=== PATIENT | male | born 1960 | race Caucasian/White ===

== ENCOUNTER 2019-06-30 12:38 | Inpatient (IN) | payer MEDICAID ==
[2019-06-30] MEDS ORDERED: HYDROmorphone 0.5 MG/0.5 ML Syringe IVPUSH ONE (13:52)
[2019-06-30] MEDS ORDERED: Ondansetron 4 MG/2 ML SDV IVPUSH ONE (13:52)
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
[2019-06-30] MEDS: Sodium Chloride 0.9% 1,000 ML IV SCH ×2 (14:17→19:56)
[2019-06-30] MEDS ORDERED: Sodium Chloride 0.9% 1,000 ML IV SCH (15:15)
--- NOTE | 2019-06-30 15:27 | CRLCR ---
INDICATION: Shortness of breath TECHNIQUE: Portable semi-upright frontal view of the chest. COMPARISON: None FINDINGS/IMPRESSION: 1. There is suboptimal inspiratory volume. Focal retrocardiac opacity likely represents atelectasis. The lungs are otherwise clear. 2. There is no pleural effusion or pneumothorax. The cardiomediastinal silhouette is normal. 3. The osseous structures are unremarkable. Dictated by Savannah Holder MD @ Jun 30 2019 3:25PM Signed by Dr. Savannah Holder @ Jun 30 2019 3:25PM
--- NOTE | 2019-06-30 18:17 | CRLUS ---
CLINICAL HISTORY: Abdominal pain COMPARISON: MRI abdomen 05/31/2019 TECHNIQUE: Real time guthrie scale imaging and color Doppler analysis was performed of the abdomen. FINDINGS: Liver: Coarse parenchymal echotexture, compatible with cirrhosis. No suspicious lesions. No intrahepatic biliary dilatation. Patent main portal vein with suggestion of hepatofugal flow. Mild ascites. Common bile duct: Normal caliber measuring up to 6 mm. Gallbladder: Sludge and multiple small shadowing gallstones. Mild gallbladder wall thickening, nonspecific in the presence of ascites. Pancreas: Visualized portions of the head and body appear unremarkable. Distal pancreas obscured. Spleen: Nonenlarged, measuring up to 13.1 cm. Aorta: Obscured Intrahepatic IVC: Obscured Right kidney: Measures 10 cm in length. Normal cortical thickness and parenchymal echotexture. No hydronephrosis. Small renal cortical cyst Left kidney: Measures 9.8 cm in length. Normal cortical thickness and parenchymal echotexture. No hydronephrosis. Impression : 1. Hepatic cirrhosis with mild ascites. Hepatofugal flow in the main portal vein. 2. Cholelithiasis. Mild gallbladder wall thickening, nonspecific in the setting of ascites. Dictated by Savannah Holder MD @ Jun 30 2019 6:15PM Signed by Dr. Savannah Holder @ Jun 30 2019 6:15PM
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
--- NOTE | 2019-06-30 18:30 | PCM.OPNOTE ---
- General Post-Op/Procedure Note Date of Surgery/Procedure: 06/30/19 Operative Procedure(s): Pericentesis of abdominal fluid Findings: 3900 cc of fluid removed from abd. cavity+ Pre Op Diagnosis: cirrhosis of the liver with ascites Primary Surgeon: Can Bennett Sr Condition: Good Free Text/Narrative:: He has significant distention of his abdomen with pain and discomfort. Using the standard sterile technique I cleaned the area that was marked by ultrasound to have ascitic fluid present removed that was in the lateral right side of the abdomen. I cleaned the area with ChloraPrep and then injected 1% lidocaine 4 cc was used. I then used a catheter that was placed through the skin after the skin with a #11 blade. Using suction bottles I are removed 3900 cc of ascitic fluid. He tolerated this well. He requests to be a no code and will be admitted in the hospital as he has significant liver dysfunction. He also has bladder distention and a Dela Cruz catheter will be placed. I will also give albumin 25 g. IV.
[2019-06-30] MEDS ORDERED: Lidocaine 2% Jelly 10 ML Urojet MUCMEM ONE (21:29)
[2019-06-30] MEDS: Temazepam 15 MG Cap PO PRN (22:47)
[2019-06-30] MEDS: Tamsulosin 0.4 MG Cap.ER PO SCH (22:47)
[2019-07-01] MEDS: Sodium Chloride 0.9% 1,000 ML IV SCH ×3 (03:52→19:36)
[2019-07-01] MEDS ORDERED: Tamsulosin 0.4 MG Cap.ER PO SCH (09:00)
[2019-07-01] MEDS: Tamsulosin 0.4 MG Cap.ER PO SCH (09:37)
[2019-07-01] MEDS ORDERED: Sodium Chloride 0.9% 300 ML IV ONE (12:00)
--- NOTE | 2019-07-01 13:42 | PCM.PN ---
- General Info Date of Service: 07/01/19 Admission Dx/Problem (Free Text): his abdomen is starting to swell again we'll try to get a Lugoff shunt in tomorrow and have called Dr. Ritter. Functional Status: Reports: Pain Controlled - Review of Systems General: Reports: Weakness, Fatigue HEENT: Reports: No Symptoms Pulmonary: Reports: Shortness of Breath, Cough Cardiovascular: Reports: Dyspnea on Exertion Genitourinary: Reports: No Symptoms, Other (Dela Cruz catheter was removed as he is unable to tolerate the pain and he has had straight catheters as his bladder is distended with retention.) Musculoskeletal: Reports: No Symptoms, Leg Pain, Foot Pain Skin: Reports: Bruising Neurological: Reports: No Symptoms Psychiatric: Reports: No Symptoms - Patient Data Vitals - Most Recent: Last Vital Signs Temp 97.7 F 07/01/19 10:39 Pulse 93 07/01/19 10:39 Resp 18 07/01/19 10:39 BP 90/60 07/01/19 13:10 Pulse Ox 94 L 07/01/19 10:39 Weight - Most Recent: 160 lb I&O - Last 24 Hours: Intake & Output 06/30/19 07/01/19 07/01/19 22:59 06:59 14:59 Intake Total 1205 460 Output Total 4150 700 Balance -4150 1205 -240 Lab Results Last 24 Hours: Laboratory Results - last 24 hr 06/30/19 06/30/19 06/30/19 Range/Units 12:30 12:30 12:30 PT 17.1 H (9.5-12.0) sec INR 1.63 H (0.80-1.20) APTT 30.6 (27.0-36.0) sec Sodium (140-148) mmol/L Potassium (3.6-5.2) mmol/L Chloride (100-108) mmol/L Carbon Dioxide (21-32) mmol/L Anion Gap (5.0-14.0) mmol/L BUN (7-18) mg/dL Creatinine (0.8-1.3) mg/dL Est Cr Clr Drug Dosing mL/min Estimated GFR (MDRD) (>60) Glucose (74-106) mg/dL Calcium (8.5-10.1) mg/dL Total Bilirubin (0.2-1.0) mg/dL AST (15-37) U/L ALT (12-78) U/L Alkaline Phosphatase (46-116) U/L C-Reactive Protein (0.0-0.3) mg/dL Total Protein (6.4-8.2) g/dL Albumin (3.4-5.0) g/dL Globulin (2.3-3.5) g/dL Albumin/Globulin Ratio (1.2-2.2) Lipase 122 (73-393) U/L 06/30/19 06/30/19 Range/Units 13:12 13:12 PT (9.5-12.0) sec INR (0.80-1.20) APTT (27.0-36.0) sec Sodium 128 L (140-148) mmol/L Potassium 3.7 (3.6-5.2) mmol/L Chloride 92 L (100-108) mmol/L Carbon Dioxide 22 (21-32) mmol/L Anion Gap 17.7 H (5.0-14.0) mmol/L BUN 13 (7-18) mg/dL Creatinine 1.4 H (0.8-1.3) mg/dL Est Cr Clr Drug Dosing 58.32 mL/min Estimated GFR (MDRD) 52 L (>60) Glucose 127 H (74-106) mg/dL Calcium 8.5 (8.5-10.1) mg/dL Total Bilirubin 10.0 H (0.2-1.0) mg/dL AST 188 H (15-37) U/L ALT 167 H (12-78) U/L Alkaline Phosphatase 105 (46-116) U/L C-Reactive Protein 0.61 H (0.0-0.3) mg/dL Total Protein 7.2 (6.4-8.2) g/dL Albumin 2.2 L (3.4-5.0) g/dL Globulin 5.0 H (2.3-3.5) g/dL Albumin/Globulin Ratio 0.4 L (1.2-2.2) Lipase (73-393) U/L Med Orders - Current: Current Medications Sodium Chloride (Normal Saline) 1,000 mls @ 125 mls/hr IV ASDIRECTED JACKI Last Admin: 07/01/19 12:04 Dose: 125 mls/hr Albumin Human (Albumin 25%) 25 gm in 100 mls @ 25 mls/hr IV ONETIME ONE Stop: 07/01/19 16:59 Last Admin: 07/01/19 13:11 Dose: 25 mls/hr Ondansetron HCl (Zofran Odt) 4 mg PO Q6H PRN PRN Reason: Nausea able to take PO Tamsulosin HCl (Flomax) 0.4 mg PO DAILY REPLACED BY [facility] Last Admin: 07/01/19 09:37 Dose: 0.4 mg Temazepam (Restoril) 15 mg PO BEDTIME PRN PRN Reason: Sleep Last Admin: 06/30/19 22:47 Dose: 15 mg Discontinued Medications Hydromorphone HCl (Dilaudid) 0.5 mg IVPUSH ONETIME ONE Stop: 06/30/19 13:53 Last Admin: 06/30/19 14:17 Dose: 0.5 mg Sodium Chloride (Normal Saline) 1,000 mls @ 999 mls/hr IV ASDIRECTED REPLACED BY [facility] Last Admin: 06/30/19 15:19 Dose: 999 mls/hr Albumin Human (Albumin 25%) 25 gm in 100 mls @ 25 mls/hr IV ONETIME ONE Stop: 07/01/19 00:23 Last Admin: 06/30/19 22:47 Dose: 25 mls/hr Sodium Chloride (Normal Saline) 300 mls @ 300 mls/hr IV BOLUS ONE Stop: 07/01/19 12:59 Last Admin: 07/01/19 12:05 Dose: 300 mls/hr Lidocaine HCl (Xylocaine 2% Jelly) 10 ml MUCMEM ONETIME ONE Stop: 06/30/19 21:30 Last Admin: 06/30/19 21:48 Dose: 10 ml Ondansetron HCl (Zofran) 4 mg IVPUSH ONETIME ONE Stop: 06/30/19 13:53 Last Admin: 06/30/19 14:15 Dose: 4 mg - Exam General: Moderate Distress HEENT: Scleral Icterus Neck: Supple Lungs: Clear to Auscultation, Normal Respiratory Effort Cardiovascular: Regular Rate GI/Abdominal Exam: Soft Back Exam: Vertebral Tenderness Extremities: No Pedal Edema, Other (there are still open wounds that are present in the feet and legs but they are dry and appear to be healing.) Peripheral Pulses: 1+: Radial (L), Radial (R) Skin: Warm, Dry Wound/Incisions: Erythema Improving Neurological: No New Focal Deficit Psy/Mental Status: Alert, Normal Affect, Normal Mood Sepsis Event Note - Evaluation Sepsis Screening Result: Possible Sepsis Risk - Focused Exam Vital Signs: Vital Signs Temp Pulse Resp BP Pulse Ox 07/01/19 13:10 90/60 07/01/19 10:39 97.7 F 93 18 85/56 L 94 L 07/01/19 07:00 97.5 F 93 18 85/47 L 92 L 07/01/19 03:00 97.9 F 96 16 94/43 L 93 L Date Exam was Performed: 07/02/19 Time Exam was Performed: 19:31 - Problem List Review Problem List Initiated/Reviewed/Updated: Yes - My Orders Last 24 Hours: My Active Orders 06/30/19 16:40 US Guidance Paracentesis NC [US] Stat 06/30/19 16:45 Insert Dela Cruz Catheter [Insert Urinary Catheter] [OM.PC] Q24H 06/30/19 17:58 Bedrest Bathroom Privileges [RC] ASDIRECTED Height and Weight [RC] DAILY May Shower [RC] ASDIRECTED Up to Chair [RC] QID Ondansetron [Zofran ODT] 4 mg PO Q6H PRN Temazepam [Restoril] 15 mg PO BEDTIME PRN Resuscitation Status Routine 06/30/19 17:59 Patient Status [ADT] Routine Oxygen Therapy [RC] PRN VTE/DVT Education [RC] Per Unit Routine Vital Signs [RC] Q4H 06/30/19 22:34 Tamsulosin [Flomax] 0.4 mg PO DAILY 07/01/19 09:45 Urinary Catheter Insertion [Insert Urinary Catheter] [OM.PC] Q24H 07/01/19 13:00 Albumin Human [Albumin 25%] 25 gm in 100 ml IV ONETIME 07/01/19 18:00 INR,PT,PROTHROMBIN TIME [COAG] Routine 07/01/19 Breakfast Regular Diet [DIET] 07/02/19 05:11 CBC WITH AUTO DIFF [HEME] AM COMPREHENSIVE METABOLIC PN,CMP [CHEM] AM INR,PT,PROTHROMBIN TIME [COAG] Routine - Plan Plan:: Assessment/Plan: #1. 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 #2. Peritoneal fluid 2nd to #1. I talked with Dr. Ritter who will consider a Lugoff shunt in the morning if he is stable. The INR is still elevated I will give vitamin K and we'll check a level of 6 tonight to make sure the INR is not worse. Dr. Ritter did give him a unit of fresh frozen plasma this morning. #3. Bladder dysfunction with retention. He has been straight cathetering as he cannot tolerate a Dela Cruz catheter #4. Cholelithiasis with mild gallbladder wall thickening. #5. History esophageal varices #6. History of Hypertension and Hypotension #7. History of Intervertebral disc degeneration.
[2019-07-01] MEDS: Ondansetron 4 MG Tab.DIS PO PRN (23:01)
[2019-07-02] MEDS: Sodium Chloride 0.9% 1,000 ML IV SCH (04:53)
--- NOTE | 2019-07-02 05:14 | CRLCR ---
INDICATION: Coughing up blood. COMPARISON: 06/30/2019 FINDINGS: A portable erect single view of the chest was obtained at 0457 hours in a lordotic projection. Inspiratory effort remains quite low. Again seen is mild patchy infiltrate in the retrocardiac left lower lobe and mild patchy density along the right hemidiaphragm, findings consistent with atelectasis. The rest of the chest is clear. The heart remains normal in size. The mediastinum is normal in appearance. The osseous structures are normal in appearance for the patient`s age. IMPRESSION: No change in mild patchy retrocardiac and right basilar infiltrates, consistent with atelectasis. Dictated by Guero Masterson MD @ Jul 02 2019 5:11AM Signed by Dr. Guero Masterson @ Jul 02 2019 5:13AM
[2019-07-02] MEDS ORDERED: Iopamidol 612 MG/ML 100 ML Bottle IV ONE (05:46)
--- NOTE | 2019-07-02 06:54 | CRLCT ---
INDICATION: Coughing up blood. COMPARISON: Chest radiograph from earlier today. CT of the abdomen and pelvis from 05/26/2019. TECHNIQUE: : CT examination of the chest was performed with the uneventful intravenous administration of 100 cc of Isovue-300 while 3 mm thick axial sections were obtained from above the apices of the lungs to the lung bases. Please note that all CT scans at this facility use dose modulation, iterative reconstruction, and/or weight-based dosing when appropriate to reduce radiation dose to as low as reasonably achievable. FINDINGS: : There is a new mild left pleural effusion. There is new prominent atelectasis of the posterior and lateral basilar segments of the left lower lobe, along with new moderate atelectasis of the inferior posterior portion of the lingula. There is a new tiny right pleural effusion with new mild atelectasis of the posterior-medial right lung base. There continues to be moderate linear atelectasis of the right lung base associated with mild eventration of the right hemidiaphragm. There is satisfactory enhancement of the pulmonary arteries with no sign of pulmonary embolism. There is no sign of mediastinal or hilar mass or adenopathy. The heart is normal in appearance for the patient`s age, as are the aorta and other ascending great vessels. There is no sign of supraclavicular or axillary mass or adenopathy. There is increased ascites, previously mild, now moderate. Again seen is prominent nodularity of the liver consistent with cirrhosis. The visualized spleen, pancreas, kidneys, and adrenals are normal in appearance. There is moderate scoliosis of the mid thoracic spine convex towards the right. IMPRESSION: New mild left pleural effusion with new prominent consolidation of the posterior and lateral segments of the left lower lobe, probably atelectasis. New moderate atelectasis of the inferior posterior lingula. New tiny right pleural effusion. Worsening ascites, now moderate. Again seen is moderate nodularity of the liver consistent with cirrhosis. Please note that all CT scans at this facility use dose modulation, iterative reconstruction, and/or weight-based dosing when appropriate to reduce radiation dose to as low as reasonably achievable. Dictated by Guero Masterson MD @ Jul 02 2019 6:45AM Signed by Dr. Guero Masterson @ Jul 02 2019 6:53AM
[2019-07-02] MEDS ORDERED: fentaNYL 100 MCG/2 ML SDV ONE (07:57)
[2019-07-02] MEDS ORDERED: Midazolam 1 MG/ML 2 ML SDV ONE (07:57)
[2019-07-02] MEDS ORDERED: Propofol 200 MG/20 ML SDV ONE (07:57)
[2019-07-02] MEDS ORDERED: ceFAZolin 2 GM in Premix Bag 1 BAG IV ONE (08:30)
[2019-07-02] MEDS ORDERED: Pantoprazole 40 MG Vial IVPUSH ONE (09:01)
[2019-07-02] MEDS: Dextrose 5%-Lactated Ringers 1,000 ML IV SCH ×2 (10:18→20:32)
[2019-07-02] MEDS: Tamsulosin 0.4 MG Cap.ER PO SCH (10:21)
[2019-07-02] MEDS ORDERED: Lidocaine 1% 2 ML ONE (16:31)
--- NOTE | 2019-07-02 19:51 | PCM.PN ---
- General Info Date of Service: 07/02/19 Subjective Update: this morning he apparently brought up significant monitor blood and also had blood in his stools and has a poor appetite today. He did have an EGD done by Dr. Ritter who found esophageal varices and no other acute bleeding was found. Functional Status: Reports: Pain Controlled - Review of Systems General: Reports: Weakness, Malaise HEENT: Reports: No Symptoms Pulmonary: Reports: No Symptoms Cardiovascular: Reports: No Symptoms Gastrointestinal: Reports: Abdominal Pain, Decreased Appetite, Melena, Nausea Genitourinary: Reports: No Symptoms Musculoskeletal: Reports: No Symptoms Skin: Reports: No Symptoms Neurological: Reports: Difficulty Walking, Weakness, Gait Disturbance Psychiatric: Reports: No Symptoms - Patient Data Vitals - Most Recent: Last Vital Signs Temp 98.8 F 07/02/19 15:33 Pulse 104 H 07/02/19 15:33 Resp 16 07/02/19 15:33 BP 86/60 L 07/02/19 15:33 Pulse Ox 93 L 07/02/19 15:33 Weight - Most Recent: 160 lb I&O - Last 24 Hours: Intake & Output 07/02/19 07/02/19 07/02/19 06:59 14:59 22:59 Intake Total 9147 166 6503 Output Total 360 350 Balance 882 621 1002 Lab Results Last 24 Hours: Laboratory Results - last 24 hr 07/01/19 07/02/19 07/02/19 Range/Units 17:11 05:40 05:40 WBC 6.6 (4.5-11.0) K/uL RBC 2.77 L (4.30-5.90) M/uL Hgb 8.2 L (12.0-15.0) g/dL Hct 24.5 L (40.0-54.0) % MCV 88 (80-98) fL MCH 30 (27-31) pg MCHC 34 (32-36) % Plt Count 200 (150-400) K/uL Neut % (Auto) 83 H (36-66) % Lymph % (Auto) 10 L (24-44) % [place] % (Auto) 6 (2-6) % Eos % (Auto) 1 L (2-4) % Baso % (Auto) 0 (0-1) % Percent Retic (0.5-1.5) % PT 17.3 H (9.5-12.0) sec INR 1.65 H (0.80-1.20) Sodium (140-148) mmol/L Potassium (3.6-5.2) mmol/L Chloride (100-108) mmol/L Carbon Dioxide (21-32) mmol/L Anion Gap (5.0-14.0) mmol/L BUN (7-18) mg/dL Creatinine (0.8-1.3) mg/dL Est Cr Clr Drug Dosing mL/min Estimated GFR (MDRD) (>60) Glucose (74-106) mg/dL Calcium (8.5-10.1) mg/dL Total Bilirubin (0.2-1.0) mg/dL AST (15-37) U/L ALT (12-78) U/L Alkaline Phosphatase (46-116) U/L Total Protein (6.4-8.2) g/dL Albumin (3.4-5.0) g/dL Globulin (2.3-3.5) g/dL Albumin/Globulin Ratio (1.2-2.2) Blood Type O POSITIVE Gel Antibody Screen Negative Crossmatch See Detail 07/02/19 07/02/19 Range/Units 05:40 05:40 WBC (4.5-11.0) K/uL RBC (4.30-5.90) M/uL Hgb (12.0-15.0) g/dL Hct (40.0-54.0) % MCV (80-98) fL MCH (27-31) pg MCHC (32-36) % Plt Count (150-400) K/uL Neut % (Auto) (36-66) % Lymph % (Auto) (24-44) % [place] % (Auto) (2-6) % Eos % (Auto) (2-4) % Baso % (Auto) (0-1) % Percent Retic 1.3 (0.5-1.5) % PT (9.5-12.0) sec INR (0.80-1.20) Sodium 127 L (140-148) mmol/L Potassium 4.0 (3.6-5.2) mmol/L Chloride 99 L (100-108) mmol/L Carbon Dioxide 20 L (21-32) mmol/L Anion Gap 12.0 (5.0-14.0) mmol/L BUN 13 (7-18) mg/dL Creatinine 1.1 (0.8-1.3) mg/dL Est Cr Clr Drug Dosing 77.01 mL/min Estimated GFR (MDRD) > 60 (>60) Glucose 99 (74-106) mg/dL Calcium 7.6 L (8.5-10.1) mg/dL Total Bilirubin 7.6 H (0.2-1.0) mg/dL AST 135 H (15-37) U/L ALT 122 H (12-78) U/L Alkaline Phosphatase 95 (46-116) U/L Total Protein 6.2 L (6.4-8.2) g/dL Albumin 2.5 L (3.4-5.0) g/dL Globulin 3.7 H (2.3-3.5) g/dL Albumin/Globulin Ratio 0.7 L (1.2-2.2) Blood Type Gel Antibody Screen Crossmatch Med Orders - Current: Current Medications Dextrose/Lactated Ringer's (Dextrose 5%-Lactated Ringers) 1,000 mls @ 100 mls/ hr IV [facility]RECTED [facility] Last Admin: 07/02/19 10:18 Dose: 100 mls/hr Ondansetron HCl (Zofran Odt) 4 mg PO Q6H PRN PRN Reason: Nausea able to take PO Last Admin: 07/01/19 23:01 Dose: 4 mg Pantoprazole Sodium (Protonix Iv) 40 mg IV Q12H JACK[facility] Tamsulosin HCl (Flomax) 0.4 mg PO DAILY [facility] Last Admin: 07/02/19 10:21 Dose: 0.4 mg Temazepam (Restoril) 15 mg PO BEDTIME PRN PRN Reason: Sleep Last Admin: 06/30/19 22:47 Dose: 15 mg Discontinued Medications Fentanyl (Sublimaze) Confirm Administered Dose 100 mcg .ROUTE .STK-MED ONE Stop: 07/02/19 07:58 Hydromorphone HCl (Dilaudid) 0.5 mg IVPUSH ONETIME ONE Stop: 06/30/19 13:53 Last Admin: 06/30/19 14:17 Dose: 0.5 mg Sodium Chloride (Normal Saline) 1,000 mls @ 150 mls/hr IV [facility]RECT[facility] Last Admin: 07/02/19 04:53 Dose: 150 mls/hr Sodium Chloride (Normal Saline) 1,000 mls @ 999 mls/hr IV [facility] Last Admin: 06/30/19 15:19 Dose: 999 mls/hr Albumin Human (Albumin 25%) 25 gm in 100 mls @ 25 mls/hr IV ONETIME ONE Stop: 07/01/19 00:23 Last Admin: 06/30/19 22:47 Dose: 25 mls/hr Sodium Chloride (Normal Saline) 300 mls @ 300 mls/hr IV BOLUS ONE Stop: 07/01/19 12:59 Last Admin: 07/01/19 12:05 Dose: 300 mls/hr Albumin Human (Albumin 25%) 25 gm in 100 mls @ 25 mls/hr IV ONETIME ONE Stop: 07/01/19 16:59 Last Admin: 07/01/19 13:11 Dose: 25 mls/hr Cefazolin Sodium/Dextrose 2 gm (/ Premix) 50 mls @ 100 mls/hr IV ONETIME ONE Stop: 07/02/19 08:59 Last Admin: 07/02/19 10:19 Dose: 100 mls/hr Albumin Human (Albumin 25%) 25 gm in 100 mls @ 25 mls/hr IV ONETIME ONE Stop: 07/01/19 23:59 Last Admin: 07/01/19 19:35 Dose: 25 mls/hr Sodium Chloride (Normal Saline) 79 mls @ 3 mls/sec IV [facility] Last Admin: 07/02/19 06:05 Dose: 3 mls/sec Lidocaine HCl (Xylocaine-Mpf 1%) Confirm Administered Dose 2 mls @ as directed .ROUTE .STK-MED ONE Stop: 07/02/19 16:32 Iopamidol (Isovue-300 (61%)) 100 ml IV . DIRECTED ONE Stop: 07/02/19 05:47 Last Admin: 07/02/19 06:05 Dose: 100 ml Lidocaine HCl (Xylocaine 2% Jelly) 10 ml MUCMEM ONETIME ONE Stop: 06/30/19 21:30 Last Admin: 06/30/19 21:48 Dose: 10 ml Midazolam HCl (Versed 1 Mg/Ml) Confirm Administered Dose 2 mg .ROUTE .STK-MED ONE Stop: 07/02/19 07:58 Ondansetron HCl (Zofran) 4 mg IVPUSH ONETIME ONE Stop: 06/30/19 13:53 Last Admin: 06/30/19 14:15 Dose: 4 mg Pantoprazole Sodium (Protonix Iv) 40 mg IVPUSH ONETIME ONE Stop: 07/02/19 09:02 Last Admin: 07/02/19 09:05 Dose: 40 mg Phytonadione (Aquamephyton) 2 mg SUBCUT ONETIME ONE Stop: 07/01/19 22:51 Last Admin: 07/01/19 23:01 Dose: 2 mg Propofol (Diprivan 20 Ml) Confirm Administered Dose 200 mg .ROUTE .STK-MED ONE Stop: 07/02/19 07:58 - Exam General: Oriented, Cooperative HEENT: Pupils Equal, Pupils Reactive, EOMI, Mucous Membr. Moist/[place] Neck: Supple Lungs: Clear to Auscultation, Normal Respiratory Effort Cardiovascular: Regular Rate, Regular Rhythm GI/Abdominal Exam: Distended Extremities: No Pedal Edema Peripheral Pulses: 1+: Radial (L), Radial (R) Skin: Warm, Dry Wound/Incisions: Dressing Dry and Intact Psy/Mental Status: Labile Mood Sepsis Event Note - Evaluation Sepsis Screening Result: Possible Sepsis Risk - Focused Exam Vital Signs: Vital Signs Temp Temp Pulse Resp BP Pulse Ox 07/02/19 15:33 98.8 F 104 H 16 86/60 L 93 L 07/02/19 11:45 98.1 F 100 18 109/63 93 L 07/02/19 10:39 97.7 F 100 16 100/63 94 L 07/02/19 10:15 97.9 F 99 18 109/67 94 L 07/02/19 10:00 100/70 07/02/19 09:45 98.1 F 102 H 18 109/68 92 L 07/02/19 09:30 18 102/64 07/02/19 09:15 97.9 F 100 16 97/53 L 94 L 07/02/19 09:10 101 H 16 97/56 L 94 L 07/02/19 09:05 99 16 81/47 L 95 07/02/19 09:00 98 16 82/44 L 95 07/02/19 08:55 97.7 F 100 16 77/45 L 94 L Date Exam was Performed: 07/02/19 Time Exam was Performed: 19:54 - Problem List Review Problem List Initiated/Reviewed/Updated: Yes - My Orders Last 24 Hours: My Active Orders 07/01/19 19:00 Communication Order [RC] ASDIRECTED 07/01/19 23:30 Insert Urinary Catheter [OM.PC] Q6H 07/02/19 05:30 Insert Urinary Catheter [OM.PC] Q6H 07/02/19 11:30 Insert Urinary Catheter [OM.PC] Q6H 07/02/19 17:30 Insert Urinary Catheter [OM.PC] Q6H 07/02/19 23:30 Insert Urinary Catheter [OM.PC] Q6H 07/02/19 Dinner Regular Diet [DIET] - Plan Plan:: Assessment/Plan: #1. 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 His liver functions have improved slightly today. #2. Peritoneal fluid 2nd to #1. a Nilesh shunt was not done Dr. Ritter advise transfer as he is going into hepatic encephalopathy. [facility] choice however is a DNR/DNI so they would not accept him at [facility] since he has chosen supportive care only. He will admit to tapping abdomen for more fluid for more comfort only.Vitamin K was given last night when he started to bleed. The INR is appropriate at the present time at 1.65. His overall prognosis is poor. We ill [facility] supportive care at his request. His bilirubin has improved from 10 down to 7.6 #3. Bladder dysfunction with retention. He has been straight cathetering as he cannot tolerate a Dela Cruz catheter #4. Cholelithiasis with mild gallbladder wall thickening. #5. History esophageal varices #6. History of Hypertension and Hypotension #7. History of Intervertebral disc degeneration.
[2019-07-02] MEDS: Pantoprazole 40 MG Vial IV SCH (20:34)
[2019-07-03] MEDS: Tamsulosin 0.4 MG Cap.ER PO SCH (09:13)
[2019-07-03] MEDS: Pantoprazole 40 MG Vial IV SCH ×2 (09:14→20:07)
[2019-07-03] MEDS: Potassium Acetate 20 MEQ in Sodium Chloride 0.9% 150 ML IV SCH ×2 (10:07→14:12)
--- NOTE | 2019-07-03 16:14 | PCM.PN ---
- General Info Date of Service: 07/03/19 Subjective Update: He is still eating very minimal at the present time and he is aware and has requested again to remain a no CODE STATUS. Functional Status: Reports: Pain Controlled - Review of Systems General: Reports: Weakness HEENT: Reports: No Symptoms Pulmonary: Reports: No Symptoms Cardiovascular: Reports: No Symptoms Gastrointestinal: Reports: Abdominal Pain, Nausea Genitourinary: Reports: Retention Musculoskeletal: Reports: No Symptoms Skin: Reports: No Symptoms Neurological: Reports: No Symptoms Psychiatric: Reports: No Symptoms - Patient Data Vitals - Most Recent: Last Vital Signs Temp 97.5 F 07/03/19 14:34 Pulse 96 07/03/19 14:34 Resp 16 07/03/19 14:34 BP 101/59 L 07/03/19 14:34 Pulse Ox 94 L 07/03/19 14:34 Weight - Most Recent: 180 lb 3.2 oz I&O - Last 24 Hours: Intake & Output 07/03/19 07/03/19 07/03/19 06:59 14:59 22:59 Intake Total 1236 520 Balance 1236 520 Lab Results Last 24 Hours: Laboratory Results - last 24 hr 07/03/19 07/03/19 07/03/19 Range/Units 05:50 05:50 05:50 WBC 6.6 (4.5-11.0) K/uL RBC 2.76 L (4.30-5.90) M/uL Hgb 8.3 L (12.0-15.0) g/dL Hct 24.4 L (40.0-54.0) % MCV 88 (80-98) fL MCH 30 (27-31) pg MCHC 34 (32-36) % Plt Count 215 (150-400) K/uL Neut % (Auto) 81 H (36-66) % Lymph % (Auto) 11 L (24-44) % [place] % (Auto) 7 H (2-6) % Eos % (Auto) 1 L (2-4) % Baso % (Auto) 1 (0-1) % PT 16.6 H (9.5-12.0) sec INR 1.58 H (0.80-1.20) Sodium 131 L (140-148) mmol/L Potassium 3.4 L (3.6-5.2) mmol/L Chloride 101 (100-108) mmol/L Carbon Dioxide 20 L (21-32) mmol/L Anion Gap 13.4 (5.0-14.0) mmol/L BUN 14 (7-18) mg/dL Creatinine 1.1 (0.8-1.3) mg/dL Est Cr Clr Drug Dosing 74.22 mL/min Estimated GFR (MDRD) > 60 (>60) Glucose 117 H (74-106) mg/dL Calcium 8.1 L (8.5-10.1) mg/dL Total Bilirubin 9.0 H (0.2-1.0) mg/dL AST 145 H (15-37) U/L ALT 118 H (12-78) U/L Alkaline Phosphatase 81 (46-116) U/L Total Protein 6.1 L (6.4-8.2) g/dL Albumin 2.4 L (3.4-5.0) g/dL Globulin 3.7 H (2.3-3.5) g/dL Albumin/Globulin Ratio 0.7 L (1.2-2.2) Med Orders - Current: Current Medications Dextrose/Lactated Ringer's (Dextrose 5%-Lactated Ringers) 1,000 mls @ 100 mls/ hr IV ASDIRECTED [facility] Last Admin: 07/02/19 20:32 Dose: 100 mls/hr Ondansetron HCl (Zofran Odt) 4 mg PO Q6H PRN PRN Reason: Nausea able to take PO Last Admin: 07/01/19 23:01 Dose: 4 mg Pantoprazole Sodium (Protonix Iv) 40 mg IV Q12H [facility] Last Admin: 07/03/19 09:14 Dose: 40 mg Tamsulosin HCl (Flomax) 0.4 mg PO DAILY [facility] Last Admin: 07/03/19 09:13 Dose: 0.4 mg Temazepam (Restoril) 15 mg PO BEDTIME PRN PRN Reason: Sleep Last Admin: 06/30/19 22:47 Dose: 15 mg Discontinued Medications Fentanyl (Sublimaze) Confirm Administered Dose 100 mcg .ROUTE .STK-MED ONE Stop: 07/02/19 07:58 Hydromorphone HCl (Dilaudid) 0.5 mg IVPUSH ONETIME ONE Stop: 06/30/19 13:53 Last Admin: 06/30/19 14:17 Dose: 0.5 mg Sodium Chloride (Normal Saline) 1,000 mls @ 150 mls/hr IV ASDIRECTED [facility] Last Admin: 07/02/19 04:53 Dose: 150 mls/hr Sodium Chloride (Normal Saline) 1,000 mls @ 999 mls/hr IV ASDIRECTED [facility] Last Admin: 06/30/19 15:19 Dose: 999 mls/hr Albumin Human (Albumin 25%) 25 gm in 100 mls @ 25 mls/hr IV ONETIME ONE Stop: 07/01/19 00:23 Last Admin: 06/30/19 22:47 Dose: 25 mls/hr Sodium Chloride (Normal Saline) 300 mls @ 300 mls/hr IV BOLUS ONE Stop: 07/01/19 12:59 Last Admin: 07/01/19 12:05 Dose: 300 mls/hr Albumin Human (Albumin 25%) 25 gm in 100 mls @ 25 mls/hr IV ONETIME ONE Stop: 07/01/19 16:59 Last Admin: 07/01/19 13:11 Dose: 25 mls/hr Cefazolin Sodium/Dextrose 2 gm (/ Premix) 50 mls @ 100 mls/hr IV ONETIME ONE Stop: 07/02/19 08:59 Last Admin: 07/02/19 10:19 Dose: 100 mls/hr Albumin Human (Albumin 25%) 25 gm in 100 mls @ 25 mls/hr IV ONETIME ONE Stop: 07/01/19 23:59 Last Admin: 07/01/19 19:35 Dose: 25 mls/hr Sodium Chloride (Normal Saline) 79 mls @ 3 mls/sec IV ASDIRECTED [facility] Last Admin: 07/02/19 06:05 Dose: 3 mls/sec Lidocaine HCl (Xylocaine-Mpf 1%) Confirm Administered Dose 2 mls @ as directed .ROUTE .STK-MED ONE Stop: 07/02/19 16:32 Potassium Acetate 20 meq/ (Sodium Chloride) 160 mls @ 80 mls/hr IV Q2H [facility] Stop: 07/03/19 13:59 Last Admin: 07/03/19 14:12 Dose: 80 mls/hr Iopamidol (Isovue-300 (61%)) 100 ml IV . DIRECTED ONE Stop: 07/02/19 05:47 Last Admin: 07/02/19 06:05 Dose: 100 ml Lidocaine HCl (Xylocaine 2% Jelly) 10 ml MUCMEM ONETIME ONE Stop: 06/30/19 21:30 Last Admin: 06/30/19 21:48 Dose: 10 ml Midazolam HCl (Versed 1 Mg/Ml) Confirm Administered Dose 2 mg .ROUTE .STK-MED ONE Stop: 07/02/19 07:58 Ondansetron HCl (Zofran) 4 mg IVPUSH ONETIME ONE Stop: 06/30/19 13:53 Last Admin: 06/30/19 14:15 Dose: 4 mg Pantoprazole Sodium (Protonix Iv) 40 mg IVPUSH ONETIME ONE Stop: 07/02/19 09:02 Last Admin: 07/02/19 09:05 Dose: 40 mg Phytonadione (Aquamephyton) 2 mg SUBCUT ONETIME ONE Stop: 07/01/19 22:51 Last Admin: 07/01/19 23:01 Dose: 2 mg Propofol (Diprivan 20 Ml) Confirm Administered Dose 200 mg .ROUTE .STK-MED ONE Stop: 07/02/19 07:58 - Exam General: Alert, Oriented, Cooperative HEENT: Pupils Equal Neck: Supple Lungs: Clear to Auscultation, Normal Respiratory Effort Cardiovascular: Regular Rate, Regular Rhythm GI/Abdominal Exam: Distended Back Exam: Normal Inspection Extremities: Normal Inspection Peripheral Pulses: 1+: Radial (L), Radial (R) Skin: Warm, Dry, Intact Wound/Incisions: Other (There is drainage from the paracentesis site.) Neurological: No New Focal Deficit Psy/Mental Status: Alert, Normal Affect, Normal Mood Sepsis Event Note - Evaluation Sepsis Screening Result: No Definite Risk - Focused Exam Vital Signs: Vital Signs Temp Pulse Resp BP Pulse Ox 07/03/19 14:34 97.5 F 96 16 101/59 L 94 L 07/03/19 10:56 97.2 F 95 18 104/59 L 94 L 07/03/19 07:00 97.6 F 98 20 89/57 L 84 L Date Exam was Performed: 07/03/19 Time Exam was Performed: 22:50 - Problem List Review Problem List Initiated/Reviewed/Updated: Yes - My Orders Last 24 Hours: My Active Orders 07/02/19 17:30 Insert Urinary Catheter [OM.PC] Q6H 07/02/19 23:30 Insert Urinary Catheter [OM.PC] Q6H 07/02/19 Dinner Regular Diet [DIET] - Plan Plan:: Assessment/Plan: #1. 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 His liver functions have improved slightly today. #2. Peritoneal fluid 2nd to #1. a [place] shunt was not done Dr. Ritter advise transfer as he is going into hepatic encephalopathy. [facility] choice however is a DNR/DNI so they would not accept him at [place] since he has chosen supportive care only. He will admit to tapping abdomen for more fluid for more comfort only.Vitamin K was given last night when he started to bleed. The INR is appropriate at the present time at 1.65. His overall prognosis is poor. We ill jonas supportive care at his request. His bilirubin has improved from 10 down to 9.0 it was 7.6 yesterday. #3. Bladder dysfunction with retention. He has been straight cathetering as he cannot tolerate a Dela Cruz catheter #4. Cholelithiasis with mild gallbladder wall thickening. #5. History esophageal varices #6. History of Hypertension and Hypotension #7. History of Intervertebral disc degeneration. #8. Anemia: hemoglobin 8.3 was 11 when he came in but he was dehydrated
[2019-07-03] MEDS: Ondansetron 4 MG Tab.DIS PO PRN (18:12)
[2019-07-03] MEDS: Temazepam 15 MG Cap PO PRN (22:34)
[2019-07-04] MEDS: Dextrose 5%-Lactated Ringers 1,000 ML IV SCH ×2 (02:40→12:47)
[2019-07-04] MEDS: Pantoprazole 40 MG Vial IV SCH ×2 (08:14→20:37)
[2019-07-04] MEDS: Tamsulosin 0.4 MG Cap.ER PO SCH (08:14)
--- NOTE | 2019-07-04 11:36 | PN ---
DATE OF SERVICE: 07/03/2019 The patient is much more clear today and is without any further obvious bleeding and hemoglobin is stable at 8.3, up slightly from 8.2 yesterday. His mentation is somewhat better. At this point, he is a DNR type status, but as discussed with Dr. Bennett yesterday that if he stabilizes and perhaps improves a little bit, we could once again consider placing the peritoneovenous shunt. Sharan Ritter MD /[id number]
[2019-07-04] MEDS: oxyCODONE 5 MG Tab PO PRN ×2 (14:06→22:54)
--- NOTE | 2019-07-04 17:49 | PCM.PN ---
- General Info Date of Service: 07/04/19 Functional Status: Reports: Pain Controlled - Review of Systems General: Reports: Weakness, Other (FNo appetite) HEENT: Reports: No Symptoms Pulmonary: Reports: Shortness of Breath Cardiovascular: Reports: No Symptoms Gastrointestinal: Reports: Abdominal Pain, Other (Black stools with dried blood no red blood.) Genitourinary: Reports: Other (Dela Cruz in place this evening.) Musculoskeletal: Reports: No Symptoms Skin: Reports: Jaundice Neurological: Reports: Difficulty Walking, Weakness, Gait Disturbance - Patient Data Vitals - Most Recent: Last Vital Signs Temp 96.1 F 07/04/19 14:59 Pulse 99 07/04/19 14:59 Resp 20 07/04/19 14:59 BP 98/58 L 07/04/19 14:59 Pulse Ox 91 L 07/04/19 14:59 Weight - Most Recent: 184 lb 6.4 oz I&O - Last 24 Hours: Intake & Output 07/04/19 07/04/19 07/04/19 06:59 14:59 22:59 Intake Total 1209 Output Total 300 Balance 1209 -300 Lab Results Last 24 Hours: Laboratory Results - last 24 hr 07/01/19 07/04/19 07/04/19 Range/Units 17:11 04:15 04:15 WBC 5.4 (4.5-11.0) K/uL RBC 2.66 L (4.30-5.90) M/uL Hgb 8.0 L (12.0-15.0) g/dL Hct 23.8 L (40.0-54.0) % MCV 90 (80-98) fL MCH 30 (27-31) pg MCHC 34 (32-36) % Plt Count 191 (150-400) K/uL Sodium 133 L (140-148) mmol/L Potassium 3.6 (3.6-5.2) mmol/L Chloride 102 (100-108) mmol/L Carbon Dioxide 23 (21-32) mmol/L Anion Gap 11.6 (5.0-14.0) mmol/L BUN 13 (7-18) mg/dL Creatinine 1.0 (0.8-1.3) mg/dL Est Cr Clr Drug Dosing 84.71 mL/min Estimated GFR (MDRD) > 60 (>60) Glucose 116 H (74-106) mg/dL Calcium 8.0 L (8.5-10.1) mg/dL Phosphorus 2.1 L (2.5-4.9) mg/dL Magnesium 1.7 L (1.8-2.4) mg/dL Total Bilirubin 9.9 H (0.2-1.0) mg/dL AST 131 H (15-37) U/L ALT 109 H (12-78) U/L Alkaline Phosphatase 80 (46-116) U/L Ammonia (11-32) mmol/L Total Protein 5.8 L (6.4-8.2) g/dL Albumin 2.1 L (3.4-5.0) g/dL Globulin 3.7 H (2.3-3.5) g/dL Albumin/Globulin Ratio 0.6 L (1.2-2.2) Crossmatch See Detail 07/04/19 Range/Units 04:15 WBC (4.5-11.0) K/uL RBC (4.30-5.90) M/uL Hgb (12.0-15.0) g/dL Hct (40.0-54.0) % MCV (80-98) fL MCH (27-31) pg MCHC (32-36) % Plt Count (150-400) K/uL Sodium (140-148) mmol/L Potassium (3.6-5.2) mmol/L Chloride (100-108) mmol/L Carbon Dioxide (21-32) mmol/L Anion Gap (5.0-14.0) mmol/L BUN (7-18) mg/dL Creatinine (0.8-1.3) mg/dL Est Cr Clr Drug Dosing mL/min Estimated GFR (MDRD) (>60) Glucose (74-106) mg/dL Calcium (8.5-10.1) mg/dL Phosphorus (2.5-4.9) mg/dL Magnesium (1.8-2.4) mg/dL Total Bilirubin (0.2-1.0) mg/dL AST (15-37) U/L ALT (12-78) U/L Alkaline Phosphatase (46-116) U/L Ammonia 23 (11-32) mmol/L Total Protein (6.4-8.2) g/dL Albumin (3.4-5.0) g/dL Globulin (2.3-3.5) g/dL Albumin/Globulin Ratio (1.2-2.2) Crossmatch Med Orders - Current: Current Medications Dextrose/Lactated Ringer's (Dextrose 5%-Lactated Ringers) 1,000 mls @ 100 mls/ hr IV ASDIRECTED [facility] Last Admin: 07/04/19 12:47 Dose: 100 mls/hr Ondansetron HCl (Zofran Odt) 4 mg PO Q6H PRN PRN Reason: Nausea able to take PO Last Admin: 07/03/19 18:12 Dose: 4 mg Oxycodone HCl (Oxycodone) 5 mg PO Q4H PRN PRN Reason: Pain (moderate 4-6) Last Admin: 07/04/19 14:06 Dose: 5 mg Pantoprazole Sodium (Protonix Iv) 40 mg IV Q12H [facility] Last Admin: 07/04/19 08:14 Dose: 40 mg Tamsulosin HCl (Flomax) 0.4 mg PO DAILY [facility] Last Admin: 07/04/19 08:14 Dose: 0.4 mg Temazepam (Restoril) 15 mg PO BEDTIME PRN PRN Reason: Sleep Last Admin: 07/03/19 22:34 Dose: 15 mg Discontinued Medications Fentanyl (Sublimaze) Confirm Administered Dose 100 mcg .ROUTE .STK-MED ONE Stop: 07/02/19 07:58 Hydromorphone HCl (Dilaudid) 0.5 mg IVPUSH ONETIME ONE Stop: 06/30/19 13:53 Last Admin: 06/30/19 14:17 Dose: 0.5 mg Sodium Chloride (Normal Saline) 1,000 mls @ 150 mls/hr IV ASDIRECTED [facility] Last Admin: 07/02/19 04:53 Dose: 150 mls/hr Sodium Chloride (Normal Saline) 1,000 mls @ 999 mls/hr IV ASDIRECTED [facility] Last Admin: 06/30/19 15:19 Dose: 999 mls/hr Albumin Human (Albumin 25%) 25 gm in 100 mls @ 25 mls/hr IV ONETIME ONE Stop: 07/01/19 00:23 Last Admin: 06/30/19 22:47 Dose: 25 mls/hr Sodium Chloride (Normal Saline) 300 mls @ 300 mls/hr IV BOLUS ONE Stop: 07/01/19 12:59 Last Admin: 07/01/19 12:05 Dose: 300 mls/hr Albumin Human (Albumin 25%) 25 gm in 100 mls @ 25 mls/hr IV ONETIME ONE Stop: 07/01/19 16:59 Last Admin: 07/01/19 13:11 Dose: 25 mls/hr Cefazolin Sodium/Dextrose 2 gm (/ Premix) 50 mls @ 100 mls/hr IV ONETIME ONE Stop: 07/02/19 08:59 Last Admin: 07/02/19 10:19 Dose: 100 mls/hr Albumin Human (Albumin 25%) 25 gm in 100 mls @ 25 mls/hr IV ONETIME ONE Stop: 07/01/19 23:59 Last Admin: 07/01/19 19:35 Dose: 25 mls/hr Sodium Chloride (Normal Saline) 79 mls @ 3 mls/sec IV ASDIRECTED [facility] Last Admin: 07/02/19 06:05 Dose: 3 mls/sec Lidocaine HCl (Xylocaine-Mpf 1%) Confirm Administered Dose 2 mls @ as directed .ROUTE .STK-MED ONE Stop: 07/02/19 16:32 Potassium Acetate 20 meq/ (Sodium Chloride) 160 mls @ 80 mls/hr IV Q2H [facility] Stop: 07/03/19 13:59 Last Admin: 07/03/19 14:12 Dose: 80 mls/hr Iopamidol (Isovue-300 (61%)) 100 ml IV . DIRECTED ONE Stop: 07/02/19 05:47 Last Admin: 07/02/19 06:05 Dose: 100 ml Lidocaine HCl (Xylocaine 2% Jelly) 10 ml MUCMEM ONETIME ONE Stop: 06/30/19 21:30 Last Admin: 06/30/19 21:48 Dose: 10 ml Midazolam HCl (Versed 1 Mg/Ml) Confirm Administered Dose 2 mg .ROUTE .STK-MED ONE Stop: 07/02/19 07:58 Ondansetron HCl (Zofran) 4 mg IVPUSH ONETIME ONE Stop: 06/30/19 13:53 Last Admin: 06/30/19 14:15 Dose: 4 mg Pantoprazole Sodium (Protonix Iv) 40 mg IVPUSH ONETIME ONE Stop: 07/02/19 09:02 Last Admin: 07/02/19 09:05 Dose: 40 mg Phytonadione (Aquamephyton) 2 mg SUBCUT ONETIME ONE Stop: 07/01/19 22:51 Last Admin: 07/01/19 23:01 Dose: 2 mg Propofol (Diprivan 20 Ml) Confirm Administered Dose 200 mg .ROUTE .STK-MED ONE Stop: 07/02/19 07:58 - Exam General: Alert, Oriented Lungs: Clear to Auscultation, Normal Respiratory Effort Cardiovascular: Regular Rate, Regular Rhythm GI/Abdominal Exam: Distended Back Exam: Normal Inspection, Full Range of Motion Skin: Other Psy/Mental Status: Normal Affect, Normal Mood Sepsis Event Note - Evaluation Sepsis Screening Result: No Definite Risk - Focused Exam Vital Signs: Vital Signs Temp Pulse Resp BP Pulse Ox 07/04/19 14:59 96.1 F 99 20 98/58 L 91 L 07/04/19 10:40 96.7 F 102 H 16 107/61 88 L 07/04/19 07:00 96.8 F 94 16 103/66 87 L Date Exam was Performed: 07/04/19 Time Exam was Performed: 17:50 - Problem List Review Problem List Initiated/Reviewed/Updated: Yes - My Orders Last 24 Hours: My Active Orders 07/04/19 13:30 [place] Catheter Insertion [Insert Urinary Catheter] [OM.PC] Q24H 07/04/19 13:55 oxyCODONE 5 mg PO Q4H PRN 07/04/19 14:32 Urinary Catheter Assessment [RC] ASDIRECTED - Plan Plan:: Assessment/Plan: #1. 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 His liver functions have improved slightly today. AST/ALT-131/109 with bili 9.9 as was 8.1 yesterday. #2. Peritoneal fluid 2nd to #1. The INR elevated. His overall prognosis is poor. We will continue with supportive care at his request. #3. Bladder dysfunction with retention. He has a Dela Cruz catheter presently. #4. Cholelithiasis with mild gallbladder wall thickening. #5. History esophageal varices #6. History of Hypertension and Hypotension #7. History of Intervertebral disc degeneration. #8. Anemia: hemoglobin 8.0 was 11 when he came in but he was dehydrated. Will repeat this tomorrow and transfuse if it continues to drop.
[2019-07-05] MEDS: Dextrose 5%-Lactated Ringers 1,000 ML IV SCH (09:22)
[2019-07-05] MEDS: Pantoprazole 40 MG Vial IV SCH ×2 (10:36→22:15)
[2019-07-05] MEDS: Tamsulosin 0.4 MG Cap.ER PO SCH (10:36)
[2019-07-05] MEDS: oxyCODONE 5 MG Tab PO PRN (14:02)
--- NOTE | 2019-07-05 19:20 | PCM.PN ---
- General Info Date of Service: 07/05/19 - Review of Systems General: Reports: Weakness, Fatigue HEENT: Reports: No Symptoms Pulmonary: Reports: No Symptoms Cardiovascular: Reports: No Symptoms Gastrointestinal: Reports: Abdominal Pain, Decreased Appetite Genitourinary: Reports: Other (Dela Cruz cath in place) Neurological: Reports: Difficulty Walking, Weakness, Gait Disturbance - Patient Data Vitals - Most Recent: Last Vital Signs Temp 98.0 F 07/05/19 18:17 Pulse 104 H 07/05/19 18:17 Resp 20 07/05/19 18:17 BP 90/52 L 07/05/19 18:17 Pulse Ox 90 L 07/05/19 18:17 Weight - Most Recent: 184 lb 6.4 oz I&O - Last 24 Hours: Intake & Output 07/05/19 07/05/19 07/05/19 06:59 14:59 22:59 Intake Total 3521 200 Output Total 275 350 Balance -275 3521 -150 Lab Results Last 24 Hours: Laboratory Results - last 24 hr 07/05/19 07/05/19 07/05/19 Range/Units 05:35 05:35 05:35 WBC 6.4 (4.5-11.0) K/uL RBC 2.72 L (4.30-5.90) M/uL Hgb 8.2 L (12.0-15.0) g/dL Hct 24.5 L (40.0-54.0) % MCV 90 (80-98) fL MCH 30 (27-31) pg MCHC 34 (32-36) % Plt Count 206 (150-400) K/uL Neut % (Auto) 80 H (36-66) % Lymph % (Auto) 11 L (24-44) % [place] % (Auto) 8 H (2-6) % Eos % (Auto) 2 (2-4) % Baso % (Auto) 1 (0-1) % PT 15.4 H (9.5-12.0) sec INR 1.46 H (0.80-1.20) Sodium 132 L (140-148) mmol/L Potassium 3.7 (3.6-5.2) mmol/L Chloride 102 (100-108) mmol/L Carbon Dioxide 21 (21-32) mmol/L Anion Gap 12.7 (5.0-14.0) mmol/L BUN 12 (7-18) mg/dL Creatinine 1.0 (0.8-1.3) mg/dL Est Cr Clr Drug Dosing 84.71 mL/min Estimated GFR (MDRD) > 60 (>60) Glucose 125 H (74-106) mg/dL Calcium 8.1 L (8.5-10.1) mg/dL Total Bilirubin 10.2 H (0.2-1.0) mg/dL AST 130 H (15-37) U/L ALT 112 H (12-78) U/L Alkaline Phosphatase 79 (46-116) U/L Total Protein 6.0 L (6.4-8.2) g/dL Albumin 2.1 L (3.4-5.0) g/dL Globulin 3.9 H (2.3-3.5) g/dL Albumin/Globulin Ratio 0.5 L (1.2-2.2) Med Orders - Current: Current Medications Dextrose/Lactated Ringer's (Dextrose 5%-Lactated Ringers) 1,000 mls @ 100 mls/ hr IV ASDIRECTED [facility] Last Admin: 07/05/19 09:22 Dose: 100 mls/hr Ondansetron HCl (Zofran Odt) 4 mg PO Q6H PRN PRN Reason: Nausea able to take PO Last Admin: 07/03/19 18:12 Dose: 4 mg Oxycodone HCl (Oxycodone) 5 mg PO Q4H PRN PRN Reason: Pain (moderate 4-6) Last Admin: 07/05/19 14:02 Dose: 5 mg Pantoprazole Sodium (Protonix Iv) 40 mg IV Q12H [facility] Last Admin: 07/05/19 10:36 Dose: 40 mg Tamsulosin HCl (Flomax) 0.4 mg PO DAILY [facility] Last Admin: 07/05/19 10:36 Dose: 0.4 mg Temazepam (Restoril) 15 mg PO BEDTIME PRN PRN Reason: Sleep Last Admin: 07/03/19 22:34 Dose: 15 mg Discontinued Medications Fentanyl (Sublimaze) Confirm Administered Dose 100 mcg .ROUTE .STK-MED ONE Stop: 07/02/19 07:58 Hydromorphone HCl (Dilaudid) 0.5 mg IVPUSH ONETIME ONE Stop: 06/30/19 13:53 Last Admin: 06/30/19 14:17 Dose: 0.5 mg Sodium Chloride (Normal Saline) 1,000 mls @ 150 mls/hr IV ASDIRECTED [facility] Last Admin: 07/02/19 04:53 Dose: 150 mls/hr Sodium Chloride (Normal Saline) 1,000 mls @ 999 mls/hr IV ASDIRECTED [facility] Last Admin: 06/30/19 15:19 Dose: 999 mls/hr Albumin Human (Albumin 25%) 25 gm in 100 mls @ 25 mls/hr IV ONETIME ONE Stop: 07/01/19 00:23 Last Admin: 06/30/19 22:47 Dose: 25 mls/hr Sodium Chloride (Normal Saline) 300 mls @ 300 mls/hr IV BOLUS ONE Stop: 07/01/19 12:59 Last Admin: 07/01/19 12:05 Dose: 300 mls/hr Albumin Human (Albumin 25%) 25 gm in 100 mls @ 25 mls/hr IV ONETIME ONE Stop: 07/01/19 16:59 Last Admin: 07/01/19 13:11 Dose: 25 mls/hr Cefazolin Sodium/Dextrose 2 gm (/ Premix) 50 mls @ 100 mls/hr IV ONETIME ONE Stop: 07/02/19 08:59 Last Admin: 07/02/19 10:19 Dose: 100 mls/hr Albumin Human (Albumin 25%) 25 gm in 100 mls @ 25 mls/hr IV ONETIME ONE Stop: 07/01/19 23:59 Last Admin: 07/01/19 19:35 Dose: 25 mls/hr Sodium Chloride (Normal Saline) 79 mls @ 3 mls/sec IV ASDIRECTED [facility] Last Admin: 07/02/19 06:05 Dose: 3 mls/sec Lidocaine HCl (Xylocaine-Mpf 1%) Confirm Administered Dose 2 mls @ as directed .ROUTE .STK-MED ONE Stop: 07/02/19 16:32 Potassium Acetate 20 meq/ (Sodium Chloride) 160 mls @ 80 mls/hr IV Q2H [facility] Stop: 07/03/19 13:59 Last Admin: 07/03/19 14:12 Dose: 80 mls/hr Iopamidol (Isovue-300 (61%)) 100 ml IV . DIRECTED ONE Stop: 07/02/19 05:47 Last Admin: 07/02/19 06:05 Dose: 100 ml Lidocaine HCl (Xylocaine 2% Jelly) 10 ml MUCMEM ONETIME ONE Stop: 06/30/19 21:30 Last Admin: 06/30/19 21:48 Dose: 10 ml Midazolam HCl (Versed 1 Mg/Ml) Confirm Administered Dose 2 mg .ROUTE .STK-MED ONE Stop: 07/02/19 07:58 Ondansetron HCl (Zofran) 4 mg IVPUSH ONETIME ONE Stop: 06/30/19 13:53 Last Admin: 06/30/19 14:15 Dose: 4 mg Pantoprazole Sodium (Protonix Iv) 40 mg IVPUSH ONETIME ONE Stop: 07/02/19 09:02 Last Admin: 07/02/19 09:05 Dose: 40 mg Phytonadione (Aquamephyton) 2 mg SUBCUT ONETIME ONE Stop: 07/01/19 22:51 Last Admin: 07/01/19 23:01 Dose: 2 mg Propofol (Diprivan 20 Ml) Confirm Administered Dose 200 mg .ROUTE .STK-MED ONE Stop: 07/02/19 07:58 - Exam General: Alert, Oriented, Cooperative HEENT: Pupils Equal, Pupils Reactive, EOMI, Mucous Membr. Moist/[place] Neck: Supple Lungs: Clear to Auscultation, Normal Respiratory Effort Cardiovascular: Regular Rate GI/Abdominal Exam: Distended, Abnormal Bowel Sounds Back Exam: Normal Inspection Extremities: Non-Tender Peripheral Pulses: 1+: Radial (L), Radial (R) Skin: Warm, Intact Psy/Mental Status: Alert, Normal Mood Sepsis Event Note - Evaluation Sepsis Screening Result: No Definite Risk - Focused Exam Vital Signs: Vital Signs Temp Temp Pulse Pulse Resp BP Pulse Ox 07/05/19 18:17 98.0 F 104 H 20 90/52 L 90 L 07/05/19 15:00 97.8 F 97 16 103/56 L 90 L 07/05/19 11:56 97.4 F 98 16 98/59 L 90 L 07/05/19 08:18 97.1 F 96 12 97/64 91 L Date Exam was Performed: 07/05/19 Time Exam was Performed: 19:20 - Problem List Review Problem List Initiated/Reviewed/Updated: Yes - Plan Plan:: Assessment/Plan: #1. 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 His liver are elevated. bill 10.2 #2. Peritoneal fluid 2nd to #1. The INR elevated. His overall prognosis is poor. We will continue with supportive care at his request. #3. Bladder dysfunction with retention. He has a Dela Cruz catheter presently. #4. Cholelithiasis with mild gallbladder wall thickening. #5. History esophageal varices #6. History of Hypertension and Hypotension presently 80 systolic. #7. History of Intervertebral disc degeneration. #8. Anemia: hemoglobin 8.2 was 11 when he came in but he was dehydrated. Will be on comfort cares now.
[2019-07-05] MEDS ORDERED: LORazepam ORAL Concentrate 1MG/0.5ML U/D PO PRN (19:44)
[2019-07-05] MEDS: Morphine 10 MG/0.5 ML Oral Syringe PO PRN (23:01)
[2019-07-06] MEDS: Tamsulosin 0.4 MG Cap.ER PO SCH (09:28)
[2019-07-06] MEDS: Pantoprazole 40 MG Vial IV SCH (09:28)
--- NOTE | 2019-07-06 14:19 | PCM.PN ---
- General Info Date of Service: 07/06/19 Functional Status: Reports: Pain Controlled - Review of Systems General: Reports: Weakness, Appetite HEENT: Reports: No Symptoms Pulmonary: Reports: No Symptoms Cardiovascular: Reports: No Symptoms Gastrointestinal: Reports: Abdominal Pain, Decreased Appetite Genitourinary: Reports: Other (Dela Cruz in place) Musculoskeletal: Reports: No Symptoms Skin: Reports: No Symptoms Psychiatric: Reports: No Symptoms - Patient Data Vitals - Most Recent: Last Vital Signs Temp 98.6 F 07/06/19 09:29 Pulse 98 07/06/19 09:29 Resp 18 07/06/19 09:29 BP 100/59 L 07/06/19 09:29 Pulse Ox 94 L 07/06/19 11:00 Weight - Most Recent: 184 lb 6.4 oz I&O - Last 24 Hours: Intake & Output 07/05/19 07/06/19 07/06/19 22:59 06:59 14:59 Intake Total 200 200 200 Output Total 350 200 Balance -150 0 200 Med Orders - Current: Current Medications Lorazepam (Ativan Oral Concentrate 1mg/0.5 Ml U/D) 0.5 mg PO Q6H PRN PRN Reason: Anxiety Morphine Sulfate (Morphine 10 Mg/0.5 Ml Oral Syringe) 5 - 10 mg PO Q3H PRN PRN Reason: Pain Last Admin: 07/05/19 23:01 Dose: 10 mg Ondansetron HCl (Zofran Odt) 4 mg PO Q6H PRN PRN Reason: Nausea able to take PO Last Admin: 07/03/19 18:12 Dose: 4 mg Pantoprazole Sodium (Protonix) 40 mg PO Q12H JACKI Tamsulosin HCl (Flomax) 0.4 mg PO DAILY JACKI Last Admin: 07/06/19 09:28 Dose: 0.4 mg Temazepam (Restoril) 15 mg PO BEDTIME PRN PRN Reason: Sleep Last Admin: 07/03/19 22:34 Dose: 15 mg Discontinued Medications Fentanyl (Sublimaze) Confirm Administered Dose 100 mcg .ROUTE .STK-MED ONE Stop: 07/02/19 07:58 Hydromorphone HCl (Dilaudid) 0.5 mg IVPUSH ONETIME ONE Stop: 06/30/19 13:53 Last Admin: 06/30/19 14:17 Dose: 0.5 mg Sodium Chloride (Normal Saline) 1,000 mls @ 150 mls/hr IV ASDIRECTED JACKI Last Admin: 07/02/19 04:53 Dose: 150 mls/hr Sodium Chloride (Normal Saline) 1,000 mls @ 999 mls/hr IV ASDIRECTED JACKI Last Admin: 06/30/19 15:19 Dose: 999 mls/hr Albumin Human (Albumin 25%) 25 gm in 100 mls @ 25 mls/hr IV ONETIME ONE Stop: 07/01/19 00:23 Last Admin: 06/30/19 22:47 Dose: 25 mls/hr Sodium Chloride (Normal Saline) 300 mls @ 300 mls/hr IV BOLUS ONE Stop: 07/01/19 12:59 Last Admin: 07/01/19 12:05 Dose: 300 mls/hr Albumin Human (Albumin 25%) 25 gm in 100 mls @ 25 mls/hr IV ONETIME ONE Stop: 07/01/19 16:59 Last Admin: 07/01/19 13:11 Dose: 25 mls/hr Dextrose/Lactated Ringer's (Dextrose 5%-Lactated Ringers) 1,000 mls @ 100 mls/ hr IV ASDIRECTED JACKI Last Admin: 07/05/19 09:22 Dose: 100 mls/hr Cefazolin Sodium/Dextrose 2 gm (/ Premix) 50 mls @ 100 mls/hr IV ONETIME ONE Stop: 07/02/19 08:59 Last Admin: 07/02/19 10:19 Dose: 100 mls/hr Albumin Human (Albumin 25%) 25 gm in 100 mls @ 25 mls/hr IV ONETIME ONE Stop: 07/01/19 23:59 Last Admin: 07/01/19 19:35 Dose: 25 mls/hr Sodium Chloride (Normal Saline) 79 mls @ 3 mls/sec IV ASDIRECTED [facility] Last Admin: 07/02/19 06:05 Dose: 3 mls/sec Lidocaine HCl (Xylocaine-Mpf 1%) Confirm Administered Dose 2 mls @ as directed .ROUTE .STK-MED ONE Stop: 07/02/19 16:32 Potassium Acetate 20 meq/ (Sodium Chloride) 160 mls @ 80 mls/hr IV Q2H JACKI Stop: 07/03/19 13:59 Last Admin: 07/03/19 14:12 Dose: 80 mls/hr Iopamidol (Isovue-300 (61%)) 100 ml IV . DIRECTED ONE Stop: 07/02/19 05:47 Last Admin: 07/02/19 06:05 Dose: 100 ml Lidocaine HCl (Xylocaine 2% Jelly) 10 ml MUCMEM ONETIME ONE Stop: 06/30/19 21:30 Last Admin: 06/30/19 21:48 Dose: 10 ml Midazolam HCl (Versed 1 Mg/Ml) Confirm Administered Dose 2 mg .ROUTE .STK-MED ONE Stop: 07/02/19 07:58 Ondansetron HCl (Zofran) 4 mg IVPUSH ONETIME ONE Stop: 06/30/19 13:53 Last Admin: 06/30/19 14:15 Dose: 4 mg Oxycodone HCl (Oxycodone) 5 mg PO Q4H PRN PRN Reason: Pain (moderate 4-6) Last Admin: 07/05/19 14:02 Dose: 5 mg Pantoprazole Sodium (Protonix Iv) 40 mg IVPUSH ONETIME ONE Stop: 07/02/19 09:02 Last Admin: 07/02/19 09:05 Dose: 40 mg Pantoprazole Sodium (Protonix Iv) 40 mg IV Q12H JACKI Last Admin: 07/06/19 09:28 Dose: 40 mg Phytonadione (Aquamephyton) 2 mg SUBCUT ONETIME ONE Stop: 07/01/19 22:51 Last Admin: 07/01/19 23:01 Dose: 2 mg Propofol (Diprivan 20 Ml) Confirm Administered Dose 200 mg .ROUTE .STK-MED ONE Stop: 07/02/19 07:58 - Exam General: Alert, Oriented HEENT: Pupils Equal, Pupils Reactive, EOMI, Mucous Membr. Moist/[place] Neck: Supple Lungs: Clear to Auscultation, Normal Respiratory Effort Cardiovascular: Regular Rate, Regular Rhythm GI/Abdominal Exam: Distended Back Exam: Normal Inspection, Full Range of Motion Peripheral Pulses: 1+: Radial (L), Radial (R) Sepsis Event Note - Evaluation Sepsis Screening Result: No Definite Risk - Focused Exam Vital Signs: Vital Signs Temp Pulse Resp BP Pulse Ox Pulse Ox 07/06/19 11:00 94 L 07/06/19 09:29 98.6 F 98 18 100/59 L 91 L Date Exam was Performed: 07/06/19 Time Exam was Performed: 14:16 - Problem List Review Problem List Initiated/Reviewed/Updated: Yes - My Orders Last 24 Hours: My Active Orders 07/05/19 19:43 Morphine [Morphine 10 MG/0.5 ML Oral Syringe] 5 - 10 mg PO Q3H PRN 07/05/19 19:44 LORazepam [Ativan ORAL Concentrate 1MG/0.5 ML U/D] 0.5 mg PO Q6H PRN 07/05/19 19:45 Comfort Measures [OM.PC] Routine - Plan Plan:: Assessment/Plan: #1. 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 His liver are elevated. #2. Peritoneal fluid 2nd to #1. The INR elevated. His overall prognosis is poor. We will continue with supportive care at his request. #3. Bladder dysfunction with retention. He has a Dela Cruz catheter presently. #4. Cholelithiasis with mild gallbladder wall thickening. #5. History esophageal varices #6. History of Hypertension and Hypotension presently 80 systolic. #7. History of Intervertebral disc degeneration. #8. Anemia: hemoglobin 8.2 was 11 when he came in but he was dehydrated. Will be on comfort cares now. Will not repeat labs at his request as he is in supportive care only.
[2019-07-06] MEDS: Temazepam 15 MG Cap PO PRN (20:49)
[2019-07-06] MEDS: Pantoprazole 40 MG Tab.CR PO SCH (20:49)
[2019-07-06] MEDS: Morphine 10 MG/0.5 ML Oral Syringe PO PRN (20:50)
[2019-07-07 07:47] VITALS: BP 98/60; PULSE 100
[2019-07-07] MEDS: Morphine 10 MG/0.5 ML Oral Syringe PO PRN (09:08)
[2019-07-07] MEDS: Pantoprazole 40 MG Tab.CR PO SCH (09:08)
[2019-07-07] MEDS: Tamsulosin 0.4 MG Cap.ER PO SCH (09:08)
--- NOTE | 2019-07-07 09:21 | PCM.DCSUM1 ---
Discharge Summary - Hospital Course Brief History: Admitted with hepatic failure secondary to alc. consumption. Diagnosis: Stroke: No - Discharge Data Discharge Date: 07/07/19 Discharge Disposition: DC/[facility] to [facility] Condition: Poor - Referral to Home Health Primary Care Physician: Can Bennett Sr, MD - Patient Summary/Data Operative Procedure(s) Performed: Pericentesis of abdominal fluid Consults: Consultations 07/01/19 13:43 Consult to Physician [CONS] Routine Consulting Provider: Can Bennett Sr Courtesy Call Completed to Consulting Physician: Yes Reason for Consult: arian shunt Person Notified: damion mattson Date Notified: 07/01/19 Time Notified: 13:44 Special Instructions: Dr. Bennett states he spoke with Dr. Mattson Hospital Course: Drained 3900 cc of ascetic fluid from the abd upon admission and had GI blood loss from the rectum and mouth which cleared. Bilirubin is >10 as is in Hepatic failure. He has chosen Hospice and DNR. - Patient Instructions Diet: Regular Diet as Tolerated Activity: As Tolerated - Discharge Plan *PRESCRIPTION DRUG MONITORING PROGRAM REVIEWED*: No *COPY OF PRESCRIPTION DRUG MONITORING REPORT IN PATIENT SPENCER: No Home Medications: Home Meds Tamsulosin [Flomax] 0.4 mg PO DAILY 06/30/19 [History] LORazepam [Ativan ORAL Concentrate 1MG/0.5 ML U/D] 0.5 mg PO Q6H PRN #0 cont 08/25 [Rx] Morphine [Morphine 10 MG/0.5 ML Oral Syringe] 5 - 10 mg PO Q3H PRN syringe 08/25 [Rx] Ondansetron [Zofran ODT] 4 mg PO Q6H PRN tab.dis 07/07/19 [Rx] Pantoprazole [ProTONIX] 40 mg PO Q12H tab.cr 07/07/19 [Rx] Temazepam [Restoril] 15 mg PO BEDTIME PRN cap 07/07/19 [Rx] Forms: ED Department Discharge Referrals: Can Bennett Sr, MD [Primary Care Provider] - - Discharge Summary/Plan Comment DC Time >30 min.: Yes Discharge Summary/Plan Comment: Assessment/Plan: #1. 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 His liver are elevated. #2. Peritoneal fluid 2nd to #1. The INR elevated. His overall prognosis is poor. We will continue with supportive care at his request. #3. Bladder dysfunction with retention. He has a Dela Cruz catheter presently. #4. Cholelithiasis with mild gallbladder wall thickening. #5. History esophageal varices #6. History of Hypertension and Hypotension presently 80 systolic. #7. History of Intervertebral disc degeneration. #8. Anemia: hemoglobin 8.2 was 11 when he came in but he was dehydrated. Will be on comfort cares now. Will be going to the [place] with Hospice care. - General Info Date of Service: 07/07/19 Subjective Update: He is still eating very minimal at the present time and he is aware and has requested again to remain a no CODE STATUS. - Review of Systems General: Reports: Weakness, Fatigue HEENT: Reports: No Symptoms Pulmonary: Reports: No Symptoms Cardiovascular: Reports: No Symptoms Gastrointestinal: Reports: Decreased Appetite Genitourinary: Reports: Other (Dela Cruz in place) Musculoskeletal: Reports: No Symptoms Skin: Reports: No Symptoms Neurological: Reports: No Symptoms Psychiatric: Reports: No Symptoms - Patient Data Vitals - Most Recent: Last Vital Signs Temp 97.4 F 07/07/19 07:44 Pulse 100 07/07/19 07:44 Resp 20 07/07/19 07:44 BP 98/60 07/07/19 07:44 Pulse Ox 88 L 07/07/19 07:44 Weight - Most Recent: 184 lb 6.4 oz I&O - Last 24 hours: Intake & Output 07/06/19 07/07/19 07/07/19 22:59 06:59 14:59 Intake Total 500 620 250 Output Total 400 225 Balance 100 395 250 Med Orders - Current: Current Medications Lorazepam (Ativan Oral Concentrate 1mg/0.5 Ml U/D) 0.5 mg PO Q6H PRN PRN Reason: Anxiety Morphine Sulfate (Morphine 10 Mg/0.5 Ml Oral Syringe) 5 - 10 mg PO Q3H PRN PRN Reason: Pain Last Admin: 07/07/19 09:08 Dose: 10 mg Ondansetron HCl (Zofran Odt) 4 mg PO Q6H PRN PRN Reason: Nausea able to take PO Last Admin: 07/03/19 18:12 Dose: 4 mg Pantoprazole Sodium (Protonix) 40 mg PO Q12H JACKI Last Admin: 07/07/19 09:08 Dose: 40 mg Tamsulosin HCl (Flomax) 0.4 mg PO DAILY [facility] Last Admin: 07/07/19 09:08 Dose: 0.4 mg Temazepam (Restoril) 15 mg PO BEDTIME PRN PRN Reason: Sleep Last Admin: 07/06/19 20:49 Dose: 15 mg Discontinued Medications Fentanyl (Sublimaze) Confirm Administered Dose 100 mcg .ROUTE .STK-MED ONE Stop: 07/02/19 07:58 Hydromorphone HCl (Dilaudid) 0.5 mg IVPUSH ONETIME ONE Stop: 06/30/19 13:53 Last Admin: 06/30/19 14:17 Dose: 0.5 mg Sodium Chloride (Normal Saline) 1,000 mls @ 150 mls/hr IV ASDIRECTED [facility] Last Admin: 07/02/19 04:53 Dose: 150 mls/hr Sodium Chloride (Normal Saline) 1,000 mls @ 999 mls/hr IV ASDIRECTED [facility] Last Admin: 06/30/19 15:19 Dose: 999 mls/hr Albumin Human (Albumin 25%) 25 gm in 100 mls @ 25 mls/hr IV ONETIME ONE Stop: 07/01/19 00:23 Last Admin: 06/30/19 22:47 Dose: 25 mls/hr Sodium Chloride (Normal Saline) 300 mls @ 300 mls/hr IV BOLUS ONE Stop: 07/01/19 12:59 Last Admin: 07/01/19 12:05 Dose: 300 mls/hr Albumin Human (Albumin 25%) 25 gm in 100 mls @ 25 mls/hr IV ONETIME ONE Stop: 07/01/19 16:59 Last Admin: 07/01/19 13:11 Dose: 25 mls/hr Dextrose/Lactated Ringer's (Dextrose 5%-Lactated Ringers) 1,000 mls @ 100 mls/ hr IV ASDIRECTED [facility] Last Admin: 07/05/19 09:22 Dose: 100 mls/hr Cefazolin Sodium/Dextrose 2 gm (/ Premix) 50 mls @ 100 mls/hr IV ONETIME ONE Stop: 07/02/19 08:59 Last Admin: 07/02/19 10:19 Dose: 100 mls/hr Albumin Human (Albumin 25%) 25 gm in 100 mls @ 25 mls/hr IV ONETIME ONE Stop: 07/01/19 23:59 Last Admin: 07/01/19 19:35 Dose: 25 mls/hr Sodium Chloride (Normal Saline) 79 mls @ 3 mls/sec IV ASDIRECTED [facility] Last Admin: 07/02/19 06:05 Dose: 3 mls/sec Lidocaine HCl (Xylocaine-Mpf 1%) Confirm Administered Dose 2 mls @ as directed .ROUTE .STK-MED ONE Stop: 07/02/19 16:32 Potassium Acetate 20 meq/ (Sodium Chloride) 160 mls @ 80 mls/hr IV Q2H JACKI Stop: 07/03/19 13:59 Last Admin: 07/03/19 14:12 Dose: 80 mls/hr Iopamidol (Isovue-300 (61%)) 100 ml IV . DIRECTED ONE Stop: 07/02/19 05:47 Last Admin: 07/02/19 06:05 Dose: 100 ml Lidocaine HCl (Xylocaine 2% Jelly) 10 ml MUCMEM ONETIME ONE Stop: 06/30/19 21:30 Last Admin: 06/30/19 21:48 Dose: 10 ml Midazolam HCl (Versed 1 Mg/Ml) Confirm Administered Dose 2 mg .ROUTE .STK-MED ONE Stop: 07/02/19 07:58 Ondansetron HCl (Zofran) 4 mg IVPUSH ONETIME ONE Stop: 06/30/19 13:53 Last Admin: 06/30/19 14:15 Dose: 4 mg Oxycodone HCl (Oxycodone) 5 mg PO Q4H PRN PRN Reason: Pain (moderate 4-6) Last Admin: 07/05/19 14:02 Dose: 5 mg Pantoprazole Sodium (Protonix Iv) 40 mg IVPUSH ONETIME ONE Stop: 07/02/19 09:02 Last Admin: 07/02/19 09:05 Dose: 40 mg Pantoprazole Sodium (Protonix Iv) 40 mg IV Q12H [facility] Last Admin: 07/06/19 09:28 Dose: 40 mg Phytonadione (Aquamephyton) 2 mg SUBCUT ONETIME ONE Stop: 07/01/19 22:51 Last Admin: 07/01/19 23:01 Dose: 2 mg Propofol (Diprivan 20 Ml) Confirm Administered Dose 200 mg .ROUTE .K-MED ONE Stop: 07/02/19 07:58 - Exam General: Reports: Alert, Oriented HEENT: Reports: Pupils Equal, Pupils Reactive, EOMI, Mucous Membr. Moist/[place] Neck: Reports: Supple Lungs: Reports: Clear to Auscultation, Normal Respiratory Effort Cardiovascular: Reports: Regular Rate, Regular Rhythm GI/Abdominal Exam: Distended (Male) Exam: No Hernia Back Exam: Reports: Normal Inspection Extremities: Pedal Edema Skin: Reports: Warm, Dry, Intact Neurological: Reports: No New Focal Deficit Psy/Mental Status: Reports: Alert, Normal Affect
--- NOTE | 2019-07-07 09:28 | PCM.PN ---
- General Info Date of Service: 07/07/19 Functional Status: Reports: Pain Controlled - Review of Systems General: Reports: Weakness, Fatigue HEENT: Reports: No Symptoms Pulmonary: Reports: No Symptoms Cardiovascular: Reports: No Symptoms Gastrointestinal: Reports: Decreased Appetite, Nausea Genitourinary: Reports: Other (nettles in place) Musculoskeletal: Reports: No Symptoms Skin: Reports: Other (icterric) - Patient Data Vitals - Most Recent: Last Vital Signs Temp 97.4 F 07/07/19 07:44 Pulse 100 07/07/19 07:44 Resp 20 07/07/19 07:44 BP 98/60 07/07/19 07:44 Pulse Ox 88 L 07/07/19 07:44 Weight - Most Recent: 184 lb 6.4 oz I&O - Last 24 Hours: Intake & Output 07/06/19 07/07/19 07/07/19 22:59 06:59 14:59 Intake Total 500 620 250 Output Total 400 225 Balance 100 395 250 Med Orders - Current: Current Medications Lorazepam (Ativan Oral Concentrate 1mg/0.5 Ml U/D) 0.5 mg PO Q6H PRN PRN Reason: Anxiety Morphine Sulfate (Morphine 10 Mg/0.5 Ml Oral Syringe) 5 - 10 mg PO Q3H PRN PRN Reason: Pain Last Admin: 07/07/19 09:08 Dose: 10 mg Ondansetron HCl (Zofran Odt) 4 mg PO Q6H PRN PRN Reason: Nausea able to take PO Last Admin: 07/03/19 18:12 Dose: 4 mg Pantoprazole Sodium (Protonix) 40 mg PO Q12H JACKI Last Admin: 07/07/19 09:08 Dose: 40 mg Tamsulosin HCl (Flomax) 0.4 mg PO DAILY JACKI Last Admin: 07/07/19 09:08 Dose: 0.4 mg Temazepam (Restoril) 15 mg PO BEDTIME PRN PRN Reason: Sleep Last Admin: 07/06/19 20:49 Dose: 15 mg Discontinued Medications Fentanyl (Sublimaze) Confirm Administered Dose 100 mcg .ROUTE .STK-MED ONE Stop: 07/02/19 07:58 Hydromorphone HCl (Dilaudid) 0.5 mg IVPUSH ONETIME ONE Stop: 06/30/19 13:53 Last Admin: 06/30/19 14:17 Dose: 0.5 mg Sodium Chloride (Normal Saline) 1,000 mls @ 150 mls/hr IV ASDIRECTED [facility] Last Admin: 07/02/19 04:53 Dose: 150 mls/hr Sodium Chloride (Normal Saline) 1,000 mls @ 999 mls/hr IV ASDIRECTED [facility] Last Admin: 06/30/19 15:19 Dose: 999 mls/hr Albumin Human (Albumin 25%) 25 gm in 100 mls @ 25 mls/hr IV ONETIME ONE Stop: 07/01/19 00:23 Last Admin: 06/30/19 22:47 Dose: 25 mls/hr Sodium Chloride (Normal Saline) 300 mls @ 300 mls/hr IV BOLUS ONE Stop: 07/01/19 12:59 Last Admin: 07/01/19 12:05 Dose: 300 mls/hr Albumin Human (Albumin 25%) 25 gm in 100 mls @ 25 mls/hr IV ONETIME ONE Stop: 07/01/19 16:59 Last Admin: 07/01/19 13:11 Dose: 25 mls/hr Dextrose/Lactated Ringer's (Dextrose 5%-Lactated Ringers) 1,000 mls @ 100 mls/ hr IV ASDIRECTED [facility] Last Admin: 07/05/19 09:22 Dose: 100 mls/hr Cefazolin Sodium/Dextrose 2 gm (/ Premix) 50 mls @ 100 mls/hr IV ONETIME ONE Stop: 07/02/19 08:59 Last Admin: 07/02/19 10:19 Dose: 100 mls/hr Albumin Human (Albumin 25%) 25 gm in 100 mls @ 25 mls/hr IV ONETIME ONE Stop: 07/01/19 23:59 Last Admin: 07/01/19 19:35 Dose: 25 mls/hr Sodium Chloride (Normal Saline) 79 mls @ 3 mls/sec IV ASDIRECTED [facility] Last Admin: 07/02/19 06:05 Dose: 3 mls/sec Lidocaine HCl (Xylocaine-Mpf 1%) Confirm Administered Dose 2 mls @ as directed .ROUTE .STK-MED ONE Stop: 07/02/19 16:32 Potassium Acetate 20 meq/ (Sodium Chloride) 160 mls @ 80 mls/hr IV Q2H [facility]ACKI Stop: 07/03/19 13:59 Last Admin: 07/03/19 14:12 Dose: 80 mls/hr Iopamidol (Isovue-300 (61%)) 100 ml IV . DIRECTED ONE Stop: 07/02/19 05:47 Last Admin: 07/02/19 06:05 Dose: 100 ml Lidocaine HCl (Xylocaine 2% Jelly) 10 ml MUCMEM ONETIME ONE Stop: 06/30/19 21:30 Last Admin: 06/30/19 21:48 Dose: 10 ml Midazolam HCl (Versed 1 Mg/Ml) Confirm Administered Dose 2 mg .ROUTE .STK-MED ONE Stop: 07/02/19 07:58 Ondansetron HCl (Zofran) 4 mg IVPUSH ONETIME ONE Stop: 06/30/19 13:53 Last Admin: 06/30/19 14:15 Dose: 4 mg Oxycodone HCl (Oxycodone) 5 mg PO Q4H PRN PRN Reason: Pain (moderate 4-6) Last Admin: 07/05/19 14:02 Dose: 5 mg Pantoprazole Sodium (Protonix Iv) 40 mg IVPUSH ONETIME ONE Stop: 07/02/19 09:02 Last Admin: 07/02/19 09:05 Dose: 40 mg Pantoprazole Sodium (Protonix Iv) 40 mg IV Q12H [facility] Last Admin: 07/06/19 09:28 Dose: 40 mg Phytonadione (Aquamephyton) 2 mg SUBCUT ONETIME ONE Stop: 07/01/19 22:51 Last Admin: 07/01/19 23:01 Dose: 2 mg Propofol (Diprivan 20 Ml) Confirm Administered Dose 200 mg .ROUTE .STK-MED ONE Stop: 07/02/19 07:58 - Exam General: Alert, Oriented, Moderate Distress HEENT: Pupils Equal, Pupils Reactive, EOMI, Mucous Membr. Moist/[place] Neck: Supple Lungs: Clear to Auscultation, Normal Respiratory Effort Cardiovascular: Regular Rate, Regular Rhythm GI/Abdominal Exam: Distended Back Exam: Normal Inspection, Full Range of Motion Extremities: Pedal Edema Peripheral Pulses: 1+: Radial (L), Radial (R) Skin: Other (yellow secondary to hepatic failure) Sepsis Event Note - Evaluation Sepsis Screening Result: No Definite Risk - Focused Exam Vital Signs: Vital Signs Temp Pulse Resp BP Pulse Ox 07/07/19 07:44 97.4 F 100 20 98/60 88 L Date Exam was Performed: 07/07/19 Time Exam was Performed: 09:26 - Problem List Review Problem List Initiated/Reviewed/Updated: Yes - My Orders Last 24 Hours: My Active Orders 07/07/19 09:25 Ready for Discharge [RC] PER UNIT ROUTINE - Plan Plan:: Assessment/Plan: #1. 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 His liver are elevated. #2. Peritoneal fluid 2nd to #1. The INR elevated. His overall prognosis is poor. We will continue with supportive care at his request. #3. Bladder dysfunction with retention. He has a Nettles catheter presently. #4. Cholelithiasis with mild gallbladder wall thickening. #5. History esophageal varices #6. History of Hypertension and Hypotension presently 80 systolic. #7. History of Intervertebral disc degeneration. #8. Anemia: hemoglobin 8.2 was 11 when he came in but he was dehydrated. Will be on comfort cares now. to [place] today with Hospice care.
--- NOTE | 2019-07-10 14:12 | OR ---
DATE OF PROCEDURE: 07/02/2019 SURGEON: Sharan Ritter MD PREOPERATIVE DIAGNOSIS: Upper GI bleeding. POSTOPERATIVE DIAGNOSES: 1. Upper GI bleeding with old blood in the oropharynx, esophagus and stomach, but not in duodenum. 2. No active bleeding, but multiple areas of fixed clot in stomach. 3. Moderate-sized esophageal varices, but no obvious signs of recent variceal bleeding. OPERATIVE PROCEDURE: Upper GI endoscopy. ANESTHESIA: IV sedation. INDICATION FOR PROCEDURE: Please see the progress note dictated earlier. DETAILS OF PROCEDURE: The patient was taken to the operating room and placed in the left lateral decubitus position. IV sedation was administered, after which the upper GI endoscope was passed orally through the length of the esophagus and into the stomach with retroflexion view of the fundus and thereafter through the pyloric channel into the proximal duodenum. Findings included some blood in the oropharynx and as well as into the esophagus. The upper esophagus was relatively unremarkable. There was some old blood present within the distal esophagus. The patient had moderate-sized esophageal varices, but with some irrigation of some areas of old blood, the varices did not have any areas of mucosal disruption and not likely associated with any recent bleeding. Within the stomach, there was also quite a bit of old blood present. No active bleeding can be seen. In the antrum, multiple areas of adherent clot and I suspect we were dealing with an erosive gastritis in terms of the bleeding. As one passed through the pyloric channel, again no further blood was present and no ulcers or erosions were seen in those areas. At this point, the scope was then withdrawn and the procedure then concluded. The patient most likely is having bleeding from the antrum from erosive gastritis. We will start him on Protonix IV in the recovery room and discuss the case with Dr. Bennett regarding the ongoing management. Sharan Ritter MD /[id number]
--- NOTE | 2019-07-10 14:15 | PN ---
DATE OF SERVICE: 07/09/2019 Overnight, the patient developed quite a bit in the way of hematemesis and is likely bleeding somewhere from the upper GI tract, possibly varices, although the volume is not typically that of what we will typically see with a ruptured esophageal varices. He also was noted to be more encephalopathic today than just last evening likely related to the gastrointestinal blood and its associated breakdown . The plan at this point will be to hold on the peritoneal venous shunt. We will obtain an upper GI endoscopy today and see what is going on in that regard. If he does have bandable varices, looks like it has been recently bleeding, we will need to transfer him to imaging technologist with capabilities of managing these esophageal varices. He will undergo upper endoscopy later this morning. Sharan Ritter MD /[id number]
--- NOTE | 2019-07-11 11:34 | CONS ---
DATE OF SERVICE: 07/01/2019 REFERRING PHYSICIAN: CONSULTING PHYSICIAN: Sharan Ritter MD HISTORY OF PRESENT ILLNESS: This is a 58-year-old with advanced hepatic cirrhosis secondary to alcohol use, presenting with transabdominal distention, inability to eat or take much in orally, and general weakness. He has also had some increased itching lately. He is admitted for management of the tense ascites and side effects from that on 06/30/19. PAST MEDICAL HISTORY: Includes hypertension, history of morbid obesity, and benign prostatic hypertrophy. PAST SURGICAL HISTORY: Includes tonsillectomy, knee arthroscopy, and colonoscopy. SOCIAL HISTORY: He does continue to smoke. REVIEW OF SYSTEMS: As per the emergency room note. PHYSICAL EXAMINATION: GENERAL: The patient has what appears to be normal cognition. He is appropriately communicative and conversant. ABDOMEN: Tensely distended with quite a bit in the way of collateral veins across the abdomen consistent with portal hypertension and his underlying known hepatic cirrhosis. No hernias are noted. LABORATORY DATA: Labs show a white count of 6400, hemoglobin 9.6, platelets 186,000. PT is 16.1 with an INR of 1.59, PTT 32. Creatinine is 1.2. Total bilirubin was 10 on admission, it is 8.1 today. RECOMMENDATIONS: Had discussion with the patient and Dr. Bennett. Plan this morning would be to proceed with peritoneal venous shunt tomorrow. I think this will be more effective in terms of eliminating his side effects from the ascites without risk of encephalopathy. I think this is a case that he would likely become encephalopathic with the TIPS procedure and we have had locally better results on this kind of case with peritoneal venous shunt with close monitoring to maintain patency. Potential risks of the procedure were reviewed with the patient. We will give him some fresh frozen plasma tonight to augment coagulation. The patient wishes to proceed. Surgery will be undertaken tomorrow morning. Sharan Ritter MD /[id number]
== END 2019-07-07 13:10 | DRG 432 ==
LOC: JP.ED 12:38 → JP.MS 17:59
PROVIDERS: ADMIT Internal Medicine; ATTEND Internal Medicine
PROC: 0W9G3ZZ Drainage of Peritoneal Cavity, Percutaneous Approach (ICD-10-PCS; principal; 2019-06-30)
PROC: 30233K1 Transfusion of Nonautologous Frozen Plasma into Peripheral Vein, Percutaneous Approach (ICD-10-PCS; 2019-07-02)
PROC: 0DJ08ZZ Inspection of Upper Intestinal Tract, Via Natural or Artificial Opening Endoscopic (ICD-10-PCS; 2019-07-02)
DX: K70.31 Alcoholic cirrhosis of liver with ascites (principal); K29.71 Gastritis, unspecified, with bleeding; I85.00 Esophageal varices without bleeding; K72.90 Hepatic failure, unspecified without coma; I10 Essential (primary) hypertension; M54.9 Dorsalgia, unspecified; G89.29 Other chronic pain; F17.210 Nicotine dependence, cigarettes, uncomplicated; E86.0 Dehydration; N28.9 Disorder of kidney and ureter, unspecified; D64.9 Anemia, unspecified; K80.20 Calculus of gallbladder without cholecystitis without obstruction; H91.90 Unspecified hearing loss, unspecified ear; Z79.899 Other long term (current) drug therapy; Z66 Do not resuscitate; Z51.5 Encounter for palliative care; N40.1 Benign prostatic hyperplasia with lower urinary tract symptoms; R33.8 Other retention of urine
CPT/HCPCS: 36415; 36430; 51701; 51702; 71045; 71260; 76700; 80053; 82140; 83690; 83735; 84100; 85025; 85027; 85045; 85610; 85730; 86140; 86850; 86900; 86901; 86920; 86922; 96361; 96374; 96375; 99285; 99285-25; A9270-GY; C9113; J0690; J1170; J2001; J2250; J2405; J2704; J3010; J3430; J3490; J7030; J7040; J7050; J7121; P9017; P9047; Q9967